=== PATIENT | female | born 1960 | race Caucasian/White ===

== ENCOUNTER 2021-04-21 19:55 | Emergency (ER) | payer OTHER ==
[2021-04-21 21:23] LABS: RED BLOOD COUNT 5.45 M/UL (4.00-5.10); WHITE BLOOD COUNT 10.1 K/UL (4.5-11.0)
== END 2021-04-22 04:10 | disposition home or self-care (01) ==
LOC: ER1 19:55 → EDBD 19:55 → ER1 04-22 04:10
PROVIDERS: Physician Assistant Medical
DX: K59.09 Other constipation (principal); Z86.73 Personal history of transient ischemic attack (TIA), and cerebral infarction without residual deficits; K74.60 Unspecified cirrhosis of liver; F03.90 Unspecified dementia, unspecified severity, without behavioral disturbance, psychotic disturbance, mood disturbance, and anxiety; E11.9 Type 2 diabetes mellitus without complications; I10 Essential (primary) hypertension; E78.5 Hyperlipidemia, unspecified
CPT/HCPCS: 80053; 83605; 85025; 99284